=== PATIENT | female | born 1995 | race African-American/Black ===

== ENCOUNTER 2020-05-19 16:28 | Emergency (ER) | payer MEDICAID ==
[~2020-05-19] VITALS: Ht 152.4 cm; Wt 59.0 kg
[2020-05-19 17:17] VITALS: BP 146/74
== END 2020-05-19 17:22 | disposition home or self-care (01) ==
LOC: ER 16:28
DX: L73.9 Follicular disorder, unspecified (principal)

== ENCOUNTER 2020-09-16 07:15 | Emergency (ER) | payer MEDICAID ==
[~2020-09-16] VITALS: Ht 152.4 cm; Wt 61.2 kg
[2020-09-16 07:56] VITALS: BP 117/70
[2020-09-16 07:57] LABS: Basophils # (auto) 0 10 ^3/uL (0-0.2); Basophils % (auto) 0.8 % (0.0-2.0); Eosinophils # (auto) 0.1 10 ^3/uL (0-0.8); Eosinophils % (auto) 1.7 % (0.0-7.0); Hematocrit 42.3 % (36.0-46.0); Hemoglobin 14.7 g/dL (12.2-16.2); Lymphocytes # (auto) 0.9 10 ^3/uL (0.4-5.4); Lymphocytes % (auto) 18.6 % (10.0-50.0); Mean Corpuscular Hemoglobin 30.2 pg (28.0-32.0); Mean Corpuscular Hgb Conc. 34.8 g/dL (32.0-36.0); Mean Corpuscular Volume 86.8 fL (80.0-100.0); Monocytes # (auto) 0.4 10 ^3/uL (0-1.3); Monocytes % (auto) 7.7 % (0.0-12.0); Neutrophils # (auto) 3.6 10 ^3/uL (1.6-8.6); Neutrophils % (auto) 71.2 % (37.0-80.0); Nucleated Red Blood Cells % 0.2 %; Red Blood Cells 4.87 10^6/uL (4.0-5.20); Red Cell Distribution Width 13.2 % (11.8-14.3)
[2020-09-16 07:58] LABS: Urine Bacteria FEW /hpf (None Seen); Urine Blood Negative /uL (Negative); Urine Mucus FEW (None Seen); Urine Specific Gravity 1.023 (1.001-1.035); Urine WBC 3 /hpf (0 - 5)
[2020-09-16 08:03] LABS: Potassium 4.3 mmol/L (3.5-5.1)
[2020-09-16 08:09] LABS: Albumin 3.6 g/dL (3.4-5.0); BUN/Creatinine Ratio 5.9; Bilirubin, Total 0.8 mg/dL (0.2-1.0); Total Protein 7.4 g/dL (6.4-8.2)
== END 2020-09-16 09:41 | disposition home or self-care (01) ==
LOC: ER 07:15
DX: O20.0 Threatened abortion (principal); O23.41 Unspecified infection of urinary tract in pregnancy, first trimester; Z3A.01 Less than 8 weeks gestation of pregnancy
CPT/HCPCS: 36415; 76801; 76817; 80053; 81001; 81025; 84702; 85025; 85049

== ENCOUNTER 2020-10-15 18:46 | Emergency (ER) | payer MEDICAID ==
[~2020-10-15] VITALS: Ht 152.4 cm; Wt 61.2 kg
[2020-10-15 20:26] LABS: Basophils # (auto) 0 10 ^3/uL (0-0.2); Basophils % (auto) 0.4 % (0.0-2.0); Eosinophils # (auto) 0.1 10 ^3/uL (0-0.8); Eosinophils % (auto) 0.8 % (0.0-7.0); Hematocrit 39.6 % (36.0-46.0); Hemoglobin 13.8 g/dL (12.2-16.2); Lymphocytes # (auto) 0.8 10 ^3/uL (0.4-5.4); Lymphocytes % (auto) 10.8 % (10.0-50.0); Mean Corpuscular Hgb Conc. 34.8 g/dL (32.0-36.0); Mean Corpuscular Volume 86.2 fL (80.0-100.0); Monocytes # (auto) 0.4 10 ^3/uL (0-1.3); Monocytes % (auto) 5.1 % (0.0-12.0); Neutrophils # (auto) 6.2 10 ^3/uL (1.6-8.6); Neutrophils % (auto) 82.9 % (37.0-80.0); Nucleated Red Blood Cells % 0.1 %; Red Blood Cells 4.59 10^6/uL (4.0-5.20); White Blood Cell 7.5 10^3/uL (4.4-10.8)
[2020-10-15 20:46] LABS: Albumin 3.6 g/dL (3.4-5.0); Calcium 8.4 mg/dL (8.5-10.1); Potassium 4.1 mmol/L (3.5-5.1)
[2020-10-15 20:49] LABS: BUN/Creatinine Ratio 11.6; Bilirubin, Total 0.3 mg/dL (0.2-1.0); Total Protein 7.4 g/dL (6.4-8.2)
[2020-10-16] MEDS ORDERED: OXYTOCIN 10UNIT/ML 1ML VIAL IV ONE
[2020-10-16 00:42] LABS: INR 0.94 (0.9-1.15); Partial Thromboplastin Time 26.5 sec (23.0-31.2)
[2020-10-16 07:49] VITALS: BP 95/48
== END 2020-10-16 08:10 | disposition still patient (30) ==
LOC: ER 18:47
DX: O03.4 Incomplete spontaneous abortion without complication (principal); Z3A.11 11 weeks gestation of pregnancy; Z20.822 Contact with and (suspected) exposure to COVID-19
CPT/HCPCS: 36415; 76801; 76817; 80053; 84702; 85025; 85610; 85730; 86850; 86900; 86901; 87426; 99284; J2590

== ENCOUNTER 2021-08-24 13:05 | Emergency (ER) | payer MEDICAID ==
[~2021-08-24] VITALS: Ht 152.4 cm; Wt 54.4 kg
[2021-08-24 13:27] VITALS: BP 140/55
[2021-08-24 14:04] LABS: Urine Bacteria NONE SEEN /hpf (None Seen); Urine Blood 3+ /uL (Negative); Urine Mucus FEW (None Seen); Urine Specific Gravity 1.021 (1.001-1.035); Urine WBC 10 /hpf (0 - 5)
[2021-08-24 14:21] LABS: Basophils # (auto) 0 10 ^3/uL (0-0.2); Basophils % (auto) 0.2 % (0.0-2.0); Eosinophils # (auto) 0.1 10 ^3/uL (0-0.8); Eosinophils % (auto) 1.9 % (0.0-7.0); Hemoglobin 13.5 g/dL (12.2-16.2); Lymphocytes % (auto) 24.1 % (10.0-50.0); Mean Corpuscular Hemoglobin 29.4 pg (28.0-32.0); Mean Corpuscular Hgb Conc. 34.6 g/dL (32.0-36.0); Monocytes # (auto) 0.3 10 ^3/uL (0-1.3); Monocytes % (auto) 7.9 % (0.0-12.0); Neutrophils # (auto) 2.7 10 ^3/uL (1.6-8.6); Neutrophils % (auto) 65.9 % (37.0-80.0); Nucleated Red Blood Cells % 0.1 %; Red Blood Cells 4.59 10^6/uL (4.0-5.20); Red Cell Distribution Width 13.6 % (11.8-14.3); White Blood Cell 4.2 10^3/uL (4.4-10.8)
[2021-08-24] MEDS ORDERED: ACE650RS PR (15:15)
[2021-08-24] MEDS ORDERED: NITR-87 PO (15:15)
== END 2021-08-24 15:25 | disposition home or self-care (01) ==
LOC: ER 13:05
DX: N93.9 Abnormal uterine and vaginal bleeding, unspecified (principal); N83.202 Unspecified ovarian cyst, left side; N39.0 Urinary tract infection, site not specified; Z79.899 Other long term (current) drug therapy
CPT/HCPCS: 36415; 76830; 76856; 81001; 84702; 85025

== ENCOUNTER 2022-03-26 22:40 | Inpatient (IN) | payer MEDICAID ==
[~2022-03-26] VITALS: Ht 152.4 cm; Wt 52.7 kg
[~2022-03-26 22:40] MED LIST: ACE650RS PR; NITR-87 PO
[2022-03-26 23:04] LABS: Urine WBC None Seen /hpf (0 - 5)
[2022-03-26 23:25] LABS: Urine Bacteria NONE SEEN /hpf (None Seen); Urine Blood 3+ /uL (Negative)
[2022-03-26 23:26] LABS: Urine Specific Gravity 1.026 (1.001-1.035)
[2022-03-26 23:47] LABS: Basophils # (auto) 0 10 ^3/uL (0-0.2); Basophils % (auto) 0.6 % (0.0-2.0); Eosinophils # (auto) 0.1 10 ^3/uL (0-0.8); Eosinophils % (auto) 1.4 % (0.0-7.0); Hematocrit 30.5 % (36.0-46.0); Hemoglobin 10.2 g/dL (12.2-16.2); Lymphocytes # (auto) 1.1 10 ^3/uL (0.4-5.4); Lymphocytes % (auto) 13.8 % (10.0-50.0); Mean Corpuscular Hemoglobin 27.6 pg (28.0-32.0); Mean Corpuscular Hgb Conc. 33.5 g/dL (32.0-36.0); Mean Corpuscular Volume 82.5 fL (80.0-100.0); Monocytes # (auto) 0.5 10 ^3/uL (0-1.3); Monocytes % (auto) 6.2 % (0.0-12.0); Neutrophils # (auto) 6.2 10 ^3/uL (1.6-8.6); Red Cell Distribution Width 13.4 % (11.8-14.3)
[2022-03-26 23:59] LABS: INR 0.95 (0.9-1.15); Partial Thromboplastin Time 21.8 sec (24.6-33.4)
[2022-03-27 00:04] LABS: Albumin 3.4 g/dL (3.4-5.0); BUN/Creatinine Ratio 14.8; Calcium 8.5 mg/dL (8.5-10.1); Potassium 3.7 mmol/L (3.5-5.1)
[2022-03-27 00:07] LABS: Bilirubin, Total 0.3 mg/dL (0.2-1.0)
[2022-03-27] MEDS ORDERED: cefTRIAXone 1GM/50ML D5W 50 ML IV ONE (02:30)
[2022-03-27] MEDS ORDERED: ONDANSETRON HCL 4 MG/2 ML VIAL IV PRN ×2 (05:45→10:30)
[2022-03-27] MEDS ORDERED: D5W/SOD CHLO 0.9% 1,000 ML IV SCH (05:45)
[2022-03-27 06:28] LABS: Hematocrit 24.9 % (36.0-46.0); Hemoglobin 8.8 g/dL (12.2-16.2)
[2022-03-27] MEDS ORDERED: ceFAZolin 1GM/50ML 100 ML IV ONE (09:27)
[2022-03-27] MEDS ORDERED: OXYTOCIN 10UNIT/ML 1ML VIAL ONE (09:27)
[2022-03-27] MEDS ORDERED: fentaNYL CITRATE 100 MCG/2 ML VL ONE (09:40)
[2022-03-27] MEDS ORDERED: MIDAZOLAM HCL 2MG/2ML 2ml VIAL (1mg/ml) ONE (09:40)
[2022-03-27] MEDS ORDERED: PROPOFOL 10 MG/ML 20 ML IV ONE (10:01)
[2022-03-27] MEDS ORDERED: DexAMETHasone SOD PHOS 10MG/1ML VIAL INJ ONE (10:01)
[2022-03-27] MEDS ORDERED: MIDAZOLAM HCL 2MG/2ML 2ml VIAL (1mg/ml) IV PRN (10:30)
[2022-03-27] MEDS ORDERED: ePHEDrine SULFATE 50 MG/ML AMP IV PRN (10:30)
[2022-03-27] MEDS ORDERED: MORPHINE SULFATE 4 MG/ML SYR/VIAL IV PRN (10:30)
[2022-03-27] MEDS ORDERED: HYDROmorphone HCL 2 MG/ML VL/or syr IV PRN (10:30)
[2022-03-27] MEDS ORDERED: LABETALOL HCL 5 MG/ML 4ML SYRINGE IV PRN (10:30)
[2022-03-27 10:53] LABS: Basophils # (auto) 0 10 ^3/uL (0-0.2); Lymphocytes # (auto) 1.1 10 ^3/uL (0.4-5.4); Nucleated Red Blood Cells % 0.1 %; Red Blood Cells 2.61 10^6/uL (4.0-5.20)
[2022-03-27 10:55] LABS: Basophils % (auto) 0.7 % (0.0-2.0); Eosinophils # (auto) 0.1 10 ^3/uL (0-0.8); Eosinophils % (auto) 1.1 % (0.0-7.0); Hematocrit 21.6 % (36.0-46.0); Hemoglobin 7.4 g/dL (12.2-16.2); Lymphocytes % (auto) 19.2 % (10.0-50.0); Mean Corpuscular Hemoglobin 28.5 pg (28.0-32.0); Mean Corpuscular Hgb Conc. 34.4 g/dL (32.0-36.0); Mean Corpuscular Volume 82.9 fL (80.0-100.0); Monocytes # (auto) 0.5 10 ^3/uL (0-1.3); Monocytes % (auto) 9.3 % (0.0-12.0); Neutrophils % (auto) 69.7 % (37.0-80.0); Red Cell Distribution Width 13.4 % (11.8-14.3); White Blood Cell 5.7 10^3/uL (4.4-10.8)
[2022-03-27 11:35] VITALS: BP 107/41
[2022-03-27] MEDS ORDERED: cefTRIAXone 1GM/50ML D5W 50 ML IV SCH (21:00)
== END 2022-03-27 12:03 | disposition home or self-care (01) | DRG 543 ==
LOC: EDBD 22:40 → ER 22:42 → OVERFLOW 03-27 05:37
PROVIDERS: ADMIT Nurse Practitioner; ATTEND Obstetrics & Gynecology
PROC: 10D17ZZ Extraction of Products of Conception, Retained, Via Natural or Artificial Opening (ICD-10-PCS; principal; 2022-03-27 09:45)
DX: O03.38 Urinary tract infection following incomplete spontaneous abortion (principal); D64.9 Anemia, unspecified; N39.0 Urinary tract infection, site not specified; Z20.822 Contact with and (suspected) exposure to COVID-19
CPT/HCPCS: 36415; 76801; 80053; 81001; 84702; 85014; 85018; 85025; 85610; 85730; 86850; 86900; 86901; 87426; 96365; G0378; J0690; J0696; J1100; J2250; J2704

== ENCOUNTER 2023-07-02 10:49 | Emergency (ER) | payer MEDICAID ==
[~2023-07-02] VITALS: Ht 152.4 cm; Wt 58.3 kg
[2023-07-02 13:42] VITALS: BP 115/68; PULSE 88; RESP 16; TEMP 98.9; O2SAT 98
[2023-07-02] MEDS: TETRACAINE HCL 0.5% OPTH(EYE) SOLN 4ML RIGHTEYE ONE (14:48)
[2023-07-02] MEDS: FLUORESCEIN SOD OPTH TEST STRIP RIGHTEYE ONE (14:48)
[2023-07-02] MEDS ORDERED: OFL50TS OT (15:10)
== END 2023-07-02 15:13 | disposition home or self-care (01) ==
LOC: ER 10:49
DX: S05.01XA Injury of conjunctiva and corneal abrasion without foreign body, right eye, initial encounter (principal); Q15.9 Congenital malformation of eye, unspecified; Z79.899 Other long term (current) drug therapy; X58.XXXA Exposure to other specified factors, initial encounter; Y93.89 Activity, other specified; Y92.89 Other specified places as the place of occurrence of the external cause; Y99.8 Other external cause status